=== PATIENT | female | born 1945 | race Caucasian/White ===

== ENCOUNTER → 2017-08-21 | Outpatient (CLI) | payer OTHER, MEDICARE ==
[~2017-08-21] VITALS: Ht 167.6 cm; Wt 89.0 kg
[~2017-08-21] MED LIST: ATORVASTATIN CA10 MG PO; BENADRYL25 MG PO; BUPROPION XL300 MG PO; CIPRO500 MG PO; CYTOTEC200 MCG PO; LO-DOSE ASPIRIN81 M2 PO; OMEPRAZOLE20 MG PO; TRAMADOL HCL50 MG PO
[2017-08-21 10:39] VITALS: BP 129/61
[2017-08-21 11:25] VITALS: BP 137/63
== END | disposition home or self-care (01) ==
LOC: IVINF 07-13 15:00
DX: M81.0 Age-related osteoporosis without current pathological fracture (principal)
CPT/HCPCS: 96365; J3489